=== PATIENT | male | born 1970 ===

== ENCOUNTER 2020-06-19 05:30 | Day surgery (SDC) | payer OTHER ==
[2020-06-20] MEDS ORDERED: ULTRAM50 MG PO (07:17)
[2020-06-20] MEDS ORDERED: TYLENOL ARTHRI650 MG PO (07:17)
[2020-06-20] MEDS ORDERED: MIRALAX17 GM PO (07:17)
== END 2020-06-20 08:00 | disposition home or self-care (01) ==
LOC: CIR.AMB 05:30 → SURH 10:37 → CIR.AMB 10:37 → O/R 10:37 → CIR.AMB 13:00 → O/R 16:09 → SURH 16:09 → CIR.AMB 06-20 08:00 → SURH 06-20 14:46 → O/R 06-20 14:46
PROVIDERS: ATTEND Surgery
DX: K80.10 Calculus of gallbladder with chronic cholecystitis without obstruction (principal)